=== PATIENT | female | born 1955 ===

== ENCOUNTER 2017-05-02 17:36 | Emergency (ER) | payer OTHER ==
[2017-05-02] MEDS ORDERED: Ketorolac 60 MG/2 ML SDV IM ONE (17:42)
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
== END 2017-05-02 18:58 | disposition home or self-care (01) ==
LOC: MW.ED 17:36
DX: S80.01XA Contusion of right knee, initial encounter (principal); S00.03XA Contusion of scalp, initial encounter; V49.40XA Driver injured in collision with unspecified motor vehicles in traffic accident, initial encounter; Z79.899 Other long term (current) drug therapy
CPT/HCPCS: 73562; 96372; 99283; J1885